=== PATIENT | female | born 1935 | race Caucasian/White ===

== ENCOUNTER 2017-09-25 14:28 | Emergency (ER) | payer OTHER, BC ==
[~2017-09-25 14:28] MED LIST: ASPCH81X PO; ATOR-26 PO; CALC500C70 PO; FENO134C2 PO; LEVO75TA5 PO; LRS10 PO; MULT-506 PO; OXYB10TA13 PO; PARO30TA PO; PRLSR20 PO
[2017-09-25 14:42] VITALS: TEMP 36.9
[2017-09-25] MEDS ORDERED: ACETAMINOPHEN 500 MG TAB PO STA (15:05)
--- NOTE | 2017-09-25 15:48 | DIAGNOSTIC IMAGING REPORT ---
HEAD WITHOUT CONTRAST (CT) CLINICAL HISTORY: 82 years-old Female presenting with Pt c/o fall, head injury. TECHNIQUE: Multidetector CT imaging of the head was performed without the use of intravenous contrast. IV contrast: None. A dose lowering technique was used consistent with the principles of ALARA (as low as reasonably achievable). COMPARISON: None. CT DOSE (mGy.cm): The estimated cumulative dose is 1091.72 mGycm. FINDINGS: Sales And Catering Coordinator topogram: Unremarkable. Ventricles and sulci normal in size. Brain parenchyma normal in appearance with preserved colon-white differentiation. No mass effect or midline shift. No hemorrhage or acute territorial infarct. No extra-axial fluid collection. Paranasal sinuses and mastoid air cells clear. Calvarium intact. Small subgaleal hematoma at the posterior vertex. No subjacent osseous injury. IMPRESSION: 1. No acute intracranial abnormality. 2. Small subgaleal hematoma the posterior vertex. No subjacent osseous injury. Electronically signed by: Bryant Salas M.D. 09/25/2017 3:47 PM Dictated Date/Time: 09/25/2017 3:44 PM
[2017-09-25] MEDS ORDERED: LPT/40 PO (16:25)
[2017-09-25] MEDS ORDERED: FENO145T26 PO (16:25)
[2017-09-25 16:26] VITALS: BP 130/63; PULSE 78; O2SAT 94
--- NOTE | 2017-09-25 16:34 | EMERGENCY ROOM VISIT NOTE ---
History Report prepared by Riki: Gisel Solomon Under the Supervision of: Dr. Denis Humphreys M.D. First contact with patient: 14:56 Chief Complaint: FALL Stated Complaint: FELL IN PARKING LOT - HIT BACK OF HEAD History of Present Illness The patient is an 82 year old female who presents to the Emergency Room with complaints of resolved head trauma that occurred secondary to falling prior to arrival. The patient states that she was in the parking lot after seeing her woodworking machine feeder, when she lost her balance and fell. She notes that she did not trip on anything, but she did hit her head. According to the sister in law, the patient was awake the entire time and did not lose consciousness. The patient denies a history of falling. She currently takes a baby aspirin daily. The patient reports that she has been having trouble hearing out of her right ear, which is not related to the recent fall. Source of History: patient, family (sister in law) Onset: prior to arrival Position: head Quality: other (head trauma ) Timing: resolved Associated Symptoms: No LOC Note: Associated symptoms include: lost her balance. Review of Systems See HPI for pertinent positives & negatives. A total of 10 systems reviewed and were otherwise negative. Past Medical & Surgical Patient reports no pertinent family history. Family History Patient reports no known family medical history. Social History Smoking Status: Never Smoker Smokeless Tobacco Use: No Alcohol Use: none Drug Use: none Marital Status: Housing Status: lives alone Occupation Status: retired Current/Historical Medications Scheduled Aspirin (Aspirin Chewable), 81 MG PO HS Atorvastatin (Lipitor), 40 MG PO DAILY Calcium/Vitamin D (Os-Mahamed 500 Plus D), 1 TAB PO DAILY AFTERNOON Fenofibrate (Tricor), 145 MG PO DAILY Levothyroxine Sodium (Levothyroxine Sodium), 1 TAB PO QAM Multivitamin (Multivitamin), 1 TAB PO DAILY AFTERNOON Omeprazole (Prilosec), 20 MG PO BID Oxybutynin Chloride Er (Ditropan Xl), 10 MG PO QAM Paroxetine Hcl (Paxil), 30 MG PO QAM Allergies Coded Allergies: Oxycodone (Verified Allergy, Unknown, HALLUCINATIONS, 09/25/17) Physical Exam Vital Signs Date Time Temp Pulse Resp B/P (MAP) Pulse Ox O2 Delivery O2 Flow Rate FiO2 09/25/17 16:26 78 18 130/63 94 4/18/18 14:42 36.9 82 20 132/74 92 Room Air Physical Exam GENERAL: Awake, alert, well-appearing, in no acute distress HENT: Quarter size contusion to back of head, no laceration present. Normocephalic, atraumatic. Oropharynx unremarkable. EYES: Normal conjunctiva. Sclera non-icteric. NECK: Supple. No nuchal rigidity. FROM. No JVD. RESPIRATORY: Clear to auscultation. CARDIAC: Regular rate, normal rhythm. Extremities warm and well perfused. Pulses equal. ABDOMEN: Soft, non-distended. No tenderness to palpation. No rebound or guarding. No masses. RECTAL: Deferred. MUSCULOSKELETAL: Chest examination reveals no tenderness. The back is symmetrical on inspection without obvious abnormality. There is no CVA tenderness to palpation. No joint edema. LOWER EXTREMITIES: Calves are equal size bilaterally and non-tender. No edema. No discoloration. NEURO: Normal sensorium. No sensory or motor deficits noted. SKIN: No rash or jaundice noted. Medical Decision & Procedures ER Provider Diagnostic Interpretation: CT results as stated below per my review and radiologist interpretation: HEAD WITHOUT CONTRAST (CT) CLINICAL HISTORY: 82 years-old Female presenting with Pt c/o fall, head injury. TECHNIQUE: Multidetector CT imaging of the head was performed without the use of intravenous contrast. IV contrast: None. A dose lowering technique was used consistent with the principles of ALARA (as low as reasonably achievable). COMPARISON: None. CT DOSE (mGy.cm): The estimated cumulative dose is 1091.72 mGycm. FINDINGS: Sheet Metal Technician topogram: Unremarkable. Ventricles and sulci normal in size. Brain parenchyma normal in appearance with preserved colon-white differentiation. No mass effect or midline shift. No hemorrhage or acute territorial infarct. No extra-axial fluid collection. Paranasal sinuses and mastoid air cells clear. Calvarium intact. Small subgaleal hematoma at the posterior vertex. No subjacent osseous injury. IMPRESSION: 1. No acute intracranial abnormality. 2. Small subgaleal hematoma the posterior vertex. No subjacent osseous injury. Electronically signed by: Bryant Salas M.D. 09/25/2017 3:47 PM Dictated Date/Time: 09/25/2017 3:44 PM Medications Administered Medications (Trade) Dose Ordered Sig/Machelle Route Start Time Stop Time Status Last Admin Dose Admin Acetaminophen (Tylenol Tab) 1,000 mg NOW STAT PO 09/25/17 15:05 09/25/17 15:06 DC 09/25/17 15:29 1,000 MG ED Course 1503: Past medical records reviewed. The patient was evaluated in room C1. A complete history and physical examination was performed. 1505: Ordered Tylenol Tab 1000mg PO. 1543: I reevaluated the patient, who states she is feeling significantly better. 1615: Upon reexamination the patient is feeling better. I discussed results and treatment plan with the patient. She verbalizes agreement and understanding. The patient is ready for discharge. Medical Decision Differential diagnosis: Etiologies such as fracture, dislocation, intra-abdominal, pneumothorax, intrathoracic , intracranial, neurologic, as well as other traumatic pathologies were entertained. This is an 82-year-old female who presents the emergency department complaining of fall in the parking lot. The patient denies any loss of consciousness. She has a bruise to the back of the head. She is neurovascularly intact. She was sent for CAT scan of the head which did not show any evidence of injury except for a contusion. Patient was given Tylenol here in the emergency department and was ambulated by nursing staff. I encouraged her to follow-up with her primary care physician. Patient was in agreement with the treatment plan. Medication Reconcilliation Current Medication List: was personally reviewed by me Blood Pressure Screening Patient's blood pressure: Normal blood pressure Blood pressure disposition: Did not require urgent referral Impression Primary Impression: Fall Additional Impression: Head injury Scribe Attestation The scribe's documentation has been prepared under my direction and personally reviewed by me in its entirety. I confirm that the note above accurately reflects all work, treatment, procedures, and medical decision making performed by me. Departure Information Dispostion Home / Self-Care Referrals Ajay Wesley M.D. (PCP) Forms HOME CARE DOCUMENTATION FORM, IMPORTANT VISIT INFORMATION Patient Instructions [facility] Additional Instructions You were found to have an elevated blood pressure today (>120 sytolic or >90 diastolic). Per medicare guidelines, you need to follow up with this blood pressure screening with your Primary Care Physician (PCP). For a new PCP call [phone]. You have been examined and treated today on an emergency basis only. This is not a substitute for, or an effort to provide, complete comprehensive medical care. It is impossible to recognize and treat all injuries or illnesses in a single emergency department visit. It is therefore important that you follow up closely with Dr Wesley. Call as soon as possible for an appointment. Thank you for your time and consideration. I look forward to speaking with you again soon. Please don't hesitate to call us if you have any questions. Problem Qualifiers Primary Impression: Fall Encounter type: initial encounter Qualified Codes: W19.XXXA - Unspecified fall, initial encounter Additional Impression: Head injury Encounter type: initial encounter Qualified Codes: S09.90XA - Unspecified injury of head, initial encounter
== END 2017-09-25 16:55 | disposition home or self-care (01) ==
LOC: C.EDB 14:30 → C.EDC 16:55
DX: S09.90XA Unspecified injury of head, initial encounter (principal); W19.XXXA Unspecified fall, initial encounter

== ENCOUNTER 2022-12-11 09:04 | Inpatient (IN) ==
[2022-12-11] MEDS ORDERED: ACETAMINOPHEN IV STA (10:06)
[2022-12-11 10:21] LABS: Basophils # (auto) 0.06 K/uL (0-0.2); Basophils % (auto) 0.7 %; Eosinophils # (auto) 0.11 K/uL (0-0.50); Eosinophils % (auto) 1.3 %; Hematocrit (blood only) 36.7 % (37.0-47.0); Hemoglobin 12.2 g/dl (12.0-16.0); Immature Granulocytes # (auto) 0.03 K/uL (0.01-0.20); Immature Granulocytes % (auto) 0.3 %; Lymphocytes # (auto) 1.33 K/uL (1.2-3.4); Lymphocytes % (auto) 15.1 %; Mean Corpuscular Hemoglobin 29.3 pg (25.0-34.0); Mean Corpuscular Hgb Conc 33.2 g/dL (32.0-36.0); Mean Platelet Volume 10.9 fL (9.4-12.4); Monocytes % (auto) 6.8 %; Neutrophils # (auto) 6.65 K/uL (1.40-6.50); Neutrophils % (auto) 75.8 %; Platelet Count 350 K/uL (130-400); RDW Coefficient of Variation 13.9 % (11.5-14.5); RDW Standard Deviation 44.8 fL (36.4-46.3); Red Blood Count 4.17 M/uL (4.20-5.40); White Blood Count 8.78 K/ul (4.8-10.8)
[2022-12-11] MEDS: SODIUM CHLORIDE 0.9% 1000ML 1,000 ML IV SCH ×2 (10:22→20:01)
[2022-12-11 10:24] LABS: Anion Gap 5 (3-11); BUN Creatinine Ratio 26.6 (10-20); Blood Urea Nitrogen 21 mg/dl (6-23); Calcium 9.6 mg/dl (8.6-10.3); Carbon Dioxide 26 mmol/L (21-32); Chloride 110 mmol/L (98-107); Creatinine Clr Calc Pharmacy 33.2 ml/min; Est GFR (African American) 78.6 ml/min; Est GFR (Non-African American) 67.8 ml/min; Glucose 107 mg/dl (70-99(Fasting)); Sodium 141 mmol/L (136-145)
[2022-12-11 10:29] LABS: Appearance Urine Clear (Clear); Bacteria Urine Automated 3+ (Negative); Bilirubin Urine Negative (Negative); Blood Urine Trace (Negative); Color Urine Dark Yellow; Epithelial Cell Urine Auto >30 /lpf (0-5); Glucose Urine UA Negative (Negative); Ketones Urine Negative (Negative); Leukocyte Esterase Urine Negative (Negative); Nitrite Urine Positive (Negative); Protein Urine Negative (Negative); RBC Urine Automated 0-4 /hpf (0-4); Specific Gravity Urine 1.021 (1.000-1.030); Urobilinogen Urine Negative (Negative)
[2022-12-11 10:35] LABS: Alanine Aminotransferase 9 U/L (7-52); Albumin Globulin Ratio 1.1 (0.9-2); Albumin Level 3.9 gm/dl (3.4-5.0); Alkaline Phosphatase 31 U/L (34-104); Aspartate Aminotransferase 14 U/L (13-39); Bilirubin,Total 0.6 mg/dl (0.2-1.0); Globulin 3.4 gm/dl (2.5-4.0); Lipase < 3 U/L (11-82); Magnesium 1.7 mg/dl (1.7-2.4); Total Protein 7.3 gm/dl (6.0-8.3)
[2022-12-11] MEDS ORDERED: cefTRIAXone SODIUM 1,000 MG in DEXTROSE 5% AD-VAN 50 ML IV STA (10:41)
[2022-12-11] MEDS ORDERED: OPTIRAY 320 100ml IV ONE (10:45)
--- NOTE | 2022-12-11 11:09 | CT Scan Report ---
CT SCAN OF THE ABDOMEN AND PELVIS WITH IV CONTRAST CLINICAL HISTORY: Right sided abdominal pain. COMPARISON STUDY: No priors. TECHNIQUE: Following the IV administration of 94 cc of Optiray 320, CT scan of the abdomen and pelvi s is performed from the lung bases to the proximal femora. Images are reviewed in the axial, sagittal , and coronal planes. IV contrast was administered without complication. A dose lowering technique wa s utilized adhering to the principles of ALARA. CT DOSE: 467.94 mGy.cm FINDINGS: Lung bases: The heart is enlarged and without pericardial effusion. The coronary arteries are densely calcified. There is trace right pleural effusion with segmental atelectasis at the right lung base. Scarring/atelectasis is noted at the left lung base. There is no basilar pneumothorax. There is a tin y hiatal hernia. Liver: The contrast-enhanced liver is normal in size, contour, and attenuation. There is no intrahepa tic biliary ductal dilatation. The hepatic veins and portal veins are patent. Gallbladder: Unremarkable. Spleen: Normal in size and attenuation. 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 Pancreas: Atrophic and grossly unremarkable. Adrenal glands: Unremarkable. Kidneys: The contrast enhanced kidneys demonstrate mild cortical atrophy and are without hydronephros is. The kidneys enhance symmetrically. 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 Renal sinus cysts are seen bilaterally. Subcentimeter cortical hypodensities likely rep resent cysts but are too small for definitive characterization. Abdominal vasculature: The abdominal aorta is normal in course and caliber noting moderate to advance d atherosclerotic calcification. Bowel: The small bowel and colon are normal in course and caliber. The appendix is well-visualized a nd normal. Peritoneum: There is no intraperitoneal free air or abdominal ascites. Lymphadenopathy: None. Pelvic viscera: The bladder, uterus, and adnexa are normal as visualized. Skeletal structures: The skeletal structures are osteopenic. No lytic or blastic lesions are seen. Th ere are acute right posterior 9th and 10th rib fractures. There is fracture of the right posterior 11 th rib at the costovertebral junction. There are right transverse process fractures of T10 and T11. A dditional chronic/healed bilateral rib fractures are noted. There is an insufficiency fracture of the right sacral ala. There is chronic-appearing perisplenic change in the left aspect of the pubic symp hysis. IMPRESSION: 1. There are no acute infectious or inflammatory findings in the other pelvis. 2. Acute right posterior 9th through 11th rib fractures as above, as well as acute right transverse p rocess fractures of T10 and T11. 3. Additional chronic fractures as above. 4. Cardiomegaly. 5. Trace right pleural effusion with segmental atelectasis at the right lung base. 6. Additional findings as above. ACT 112: Negative or not required by law. Electronically signed by: John Cuevas M.D. 12/11/2022 11:07 AM
--- NOTE | 2022-12-11 13:00 | Emergency Department Note ---
Impression & Plan Right lateral abdominal pain, Acute UTI (urinary tract infection), Multiple rib fractures, Fracture of transverse process of thoracic vertebra ED Provider Note ED Provider Note NAME: DEISI PATEL AGE:87 SEX: Female : 1935 ARRIVES VIA: EMS INFORMANT: Patient ED PROVIDER(s): Yamini Nash DO CHIEF COMPLAINT: right sided abdominal pain HPI: This is an 87-year-old female presents emergency department complaining of 1 week of worsening right-sided abdominal pain. Patient states she is had intermittent right-sided milder abdominal pain before, although it has worsened over the course of the last week. She denies any change in urine or difficulty urinating. She states she has been more constipated recently and has not had a bowel movement in 4 days. She denies fevers, chills, trouble breathing, cough, or other URI symptoms. Patient states the pain is worse with any movement. Patient does admit to a fall a little over a week ago where she struck her neck and face. She states she was seen at [facility] and placed in a long-term. Patient denies any history of IBS, IBD, or PUD. PAST MEDICAL HISTORY:See Below PAST SURGICAL HISTORY:See Below FAMILY HISTORY:See Below SOCIAL HISTORY:See Below HOME MEDICATIONS:See Below ALLERGIES:See Below VITALS:See Below PHYSICAL EXAMINATION: GENERAL: alert, well appearing, well nourished, no distress, non-toxic HEAD: area of resolving ecchymosis noted to submental area and anterior superior neck, no crepitus, nontender with palpation, no other evidence of head/facial trauma EYE EXAM: normal conjunctiva, PERRL and EOM's grossly intact OROPHARYNX: no exudate, no erythema, lips, buccal mucosa, and tongue normal and mucous membranes are moist NECK: supple, no nuchal rigidity, no adenopathy, non-tender LUNGS: Clear to auscultation. Normal chest wall mechanics, no w/r/r HEART: no murmurs, S1 normal and S2 normal CHEST WALL: nontender with palpation, no crepitus, no contusions ABDOMEN: abdomen soft, non-tender, normo-active bowel sounds, no masses, no rebound or guarding. PELVIS: stable to compression, nontender with palpation BACK: Back is symmetrical on inspection and there is no deformity, no midline tenderness, no CVA tenderness. SKIN: no rashes, petechiae, orbruising UPPER EXTREMITIES: upper extremities are grossly normal. FROM, nml pulses b/l. LOWER EXTREMITIES: No pitting edema. FROM, nml pulses b/l. NEURO EXAM: Normal sensorium, cranial nerves II-XII grossly intact, normal speech, no facial droop,nogross weakness of arms, no gross weakness of legs. Gross sensation intact. No ataxia. Vital Signs: reviewed and remarkable Differential Diagnosis: Colitis, SBO, volvulus, cholecystitis, acute hepatitis, UTI, renal colic, mesenteric ischemia, intussusception, appendicitis, malignancy, perf, GI bleed, as well as others were considered MEDICAL DECISION MAKING: THis is an 87 yo female who presents with concern for right sided abdominal pain. VS stable and pt afebrile. Labs drawn and sent, IV established, EKG performed and interpreted at bedside, and patient placed on telemetry. She was started on IVF and given IV tylenol for pain and sent for CT a/p. CT revealed rib fractures and transverse process fractures, likely from her reported fall a week ago. Patient takes low dose asa, no other anticoagulation. No other evidence of significant traumatic injury. Labs reassuring, however patient also noted to have a UTI. She was started on IV rocephin. No GERALDO or evidence of sepsis. While attempting to contact patient's family to update her on the findings we attempted to perform an ambulatory trial. Patient very unsteady and required assistance just to stand at bedside. Due to age, ambulatory dysfunctio n, UTI, and accompanying rib fractures, we discussed inpatient mgmt while awaiting family to call back to discuss intermediate card tender plan of care as patient states she currently lives with family. Consultation(s): 1520: Discussed with Dr. Win. ER Treatment Provided: See below 1450: Patient unsteady during ambulatory trial. Tolerated p.o. without di fficulty. Patient states family is out of town and has been unreachable by phone. She has no espinosa to get into the house and has no other financial means of paying for a way home. sales mgr did try to contact listed number for daughter several times and left messages. No return call. Diagnostics Interpreted By Me: -ECG: Sinus bradycardia at 58, normal axis, normal intervals, no acute ST/T wave change; baseline artifact noted -Cardiac Monitoring: An order was placed for continuous cardiac monitoring. The monitor shows a rate of 53 with normal sinus rhythm. -Laboratory studies: As stated above and show below. -Imaging studies: Triage Nursing Note Reviewed Prior/Outside Records Reviewed Past Med/Surg History Medical History (Updated 12/12/22 @ 21:35 by Yamini Nash DO) Acquired hypothyroidism Anxiety and depression Dyslipidemia GERD without esophagitis Social History Smoking Status: Never smoker Second Hand Exposure: No; Do You Dip or Chew Tobacco: No; Tobacco Cessation Education Requested by Patient: No Hx Alcohol Use: No Hx Substance Use: No Preferred Language: Romansh Communication Ability: Effective Outreach Professional Required: No Beliefs That Will Affect Care: None Current Living Situation: Alone Other Information That Helps Us Care for You: No Feels Safe at Home: Yes Safety Concerns: Feels Safe At This Time Assistive Devices: Cane and Walker Allergies Allergies Allergy/AdvReac Type Severity Reaction Status Date / Time oxycodone Allergy Unknown HALLUCINATI Verified 09/25/17 16:16 ONS Home Meds Home Medications Medication Instructions Recorded Confirmed ASPIRIN (ASPIRIN CHEWABLE) 81 mg PO QAM ##0 02/29/16 12/11/22 LEVOTHYROXINE SODIUM 1 tab PO QAM 90 days #90 tabs 02/29/16 12/11/22 ATORVASTATIN (LIPITOR) 40 mg PO HS #0 tabs 09/25/17 12/11/22 FENOFIBRATE (TRICOR) 145 mg PO QAM #0 tabs 09/25/17 12/11/22 acetaminophen 325 mg capsule 650 mg PO QID PRN Fever 12/11/22 12/11/22 (Tylenol) acetaminophen 325 mg tablet 325 mg PO QID PRN Pain 12/11/22 12/11/22 (Tylenol) alendronate 70 mg tablet 70 mg PO WK 12/11/22 12/11/22 bisacodyl 10 mg rectal suppository 10 mg [place] DAILY PRN Constipation 12/11/22 12/11/22 (Dulcolax (bisacodyl)) cholestyramine (with sugar) 4 gram 0 ea PO DAILY 12/11/22 12/11/22 oral powder cyanocobalamin (vitamin B-12) 5,000 mcg sublingual QAM 12/11/22 12/11/22 5,000 mcg sublingual tablet escitalopram oxalate 10 mg tablet 10 mg PO QAM 12/11/22 12/11/22 loperamide 2 mg capsule See Rx Instructions .Route .COMPLEX 12/11/22 12/11/22 magnesium hydroxide 400 mg/5 mL 30 ml PO DAILY PRN Constipation 12/11/22 12/11/22 oral suspension (Milk of Magnesia) melatonin 3 mg tablet 3 mg PO HS 12/11/22 12/11/22 pantoprazole 40 mg tablet,delayed 40 mg PO BID 12/11/22 12/11/22 release potassium chloride 20 mEq 20 meq PO QAM 12/11/22 12/11/22 tablet,extended release sodium phosphates 19 gram-7 118 ml [place] DAILY PRN Constipation 12/11/22 12/11/22 gram/118 mL enema (Fleet Enema) Results & Data (ED) Vital Signs Vital Signs - 24 hr 12/11/22 09:10 12/11/22 09:26 12/11/22 13:35 Temperature 37 C Temperature Source Oral Pulse Rate 58 L 52 L 51 L Pulse Rhythm Regular Pulse Strength Normal Respiratory Rate 20 Respiratory Effort / Characteristics Non-Labored Respiratory Depth Normal Blood Pressure 160/106 H Blood Pressure Mean 124 Pulse Oximetry 97 Oxygen Delivery Method Room Air Sepsis Recent Fever Within 48 Hours No Sepsis New/Unexplained Change in Mental Status No Sepsis Action Taken by Nursing No Action Required Laboratory Data 12/11/22 09:15 12/11/22 09:15 Lab Results 12/11/22 12/11/22 12/11/22 Range/Units 09:15 09:15 09:21 WBC 8.78 (4.8-10.8) K/ul RBC 4.17 L (4.20-5.40) M/uL Hgb 12.2 (12.0-16.0) g/dl Hct 36.7 L (37.0-47.0) % MCV 88.0 (80.0-100.0) fL MCH 29.3 (25.0-34.0) pg MCHC 33.2 (32.0-36.0) g/dL RDW Std Deviation 44.8 (36.4-46.3) fL RDW Coeff of Naya 13.9 (11.5-14.5) % Plt Count 350 (130-400) K/uL MPV 10.9 (9.4-12.4) fL Immature Gran % (Auto) 0.3 % Neut % (Auto) 75.8 % Lymph % (Auto) 15.1 % [place] % (Auto) 6.8 % Eos % (Auto) 1.3 % Baso % (Auto) 0.7 % Neut # (Auto) 6.65 H (1.40-6.50) K/uL Lymph # (Auto) 1.33 (1.2-3.4) K/uL [place] # (Auto) 0.60 H (0.11-0.59) K/uL Eos # (Auto) 0.11 (0-0.50) K/uL Baso # (Auto) 0.06 (0-0.2) K/uL Immature Gran # (Auto) 0.03 (0.01-0.20) K/uL Sodium 141 (136-145) mmol/L Potassium 4.0 (3.5-5.1) mmol/L Chloride 110 H (98-107) mmol/L Carbon Dioxide 26 (21-32) mmol/L Anion Gap 5 (3-11) BUN 21 (6-23) mg/dl Creatinine 0.79 (0.6-1.2) mg/dl Est Cr Clr Drug Dosing 33.2 ml/min Est GFR ( Amer) 78.6 ml/min Est GFR (Non-Af Amer) 67.8 ml/min BUN/Creatinine Ratio 26.6 H (10-20) Glucose 107 H (70-99(Fasting)) mg/dl Calcium 9.6 (8.6-10.3) mg/dl Magnesium 1.7 (1.7-2.4) mg/dl Total Bilirubin 0.6 (0.2-1.0) mg/dl AST 14 (13-39) U/L ALT 9 (7-52) U/L Alkaline Phosphatase 31 L (34-104) U/L Total Protein 7.3 (6.0-8.3) gm/dl Albumin 3.9 (3.4-5.0) gm/dl Globulin 3.4 (2.5-4.0) gm/dl Albumin/Globulin Ratio 1.1 (0.9-2) Lipase < 3 L (11-82) U/L Urine Color Dark Yellow Urine Appearance Clear (Clear) Urine pH 5.0 (4.5-7.5) Ur Specific [place] 1.021 (1.000-1.030) Urine Protein Negative (Negative) Urine Glucose (UA) Negative (Negative) Urine Ketones Negative (Negative) Urine Blood Trace H (Negative) Urine Nitrite Positive A (Negative) Urine Bilirubin Negative (Negative) Urine Urobilinogen Negative (Negative) Ur Leukocyte Esterase Negative (Negative) Urine WBC (Auto) 5-10 H (0-5) /hpf Urine RBC (Auto) 0-4 (0-4) /hpf U Hyaline Cast (Auto) 1-5 (0-5) /lpf U Epithel Cells (Auto) >30 H (0-5) /lpf Urine Bacteria (Auto) 3+ H (Negative) SARS-CoV-2 (PCR) (Negative) Influenza Type A (PCR) (Neg) Influenza Type B (PCR) (Neg) RSV (RT-PCR) (Neg) 12/11/22 Range/Units 15:32 WBC (4.8-10.8) K/ul RBC (4.20-5.40) M/uL Hgb (12.0-16.0) g/dl Hct (37.0-47.0) % MCV (80.0-100.0) fL MCH (25.0-34.0) pg MCHC (32.0-36.0) g/dL RDW Std Deviation (36.4-46.3) fL RDW Coeff of Naya (11.5-14.5) % Plt Count (130-400) K/uL MPV (9.4-12.4) fL Immature Gran % (Auto) % Neut % (Auto) % Lymph % (Auto) % [place] % (Auto) % Eos % (Auto) % Baso % (Auto) % Neut # (Auto) (1.40-6.50) K/uL Lymph # (Auto) (1.2-3.4) K/uL [place] # (Auto) (0.11-0.59) K/uL Eos # (Auto) (0-0.50) K/uL Baso # (Auto) (0-0.2) K/uL Immature Gran # (Auto) (0.01-0.20) K/uL Sodium (136-145) mmol/L Potassium (3.5-5.1) mmol/L Chloride (98-107) mmol/L Carbon Dioxide (21-32) mmol/L Anion Gap (3-11) BUN (6-23) mg/dl Creatinine (0.6-1.2) mg/dl Est Cr Clr Drug Dosing ml/min Est GFR ( Amer) ml/min Est GFR (Non-Af Amer) ml/min BUN/Creatinine Ratio (10-20) Glucose (70-99(Fasting)) mg/dl Calcium (8.6-10.3) mg/dl Magnesium (1.7-2.4) mg/dl Total Bilirubin (0.2-1.0) mg/dl AST (13-39) U/L ALT (7-52) U/L Alkaline Phosphatase (34-104) U/L Total Protein (6.0-8.3) gm/dl Albumin (3.4-5.0) gm/dl Globulin (2.5-4.0) gm/dl Albumin/Globulin Ratio (0.9-2) Lipase (11-82) U/L Urine Color Urine Appearance (Clear) Urine pH (4.5-7.5) Ur Specific [place] (1.000-1.030) Urine Protein (Negative) Urine Glucose (UA) (Negative) Urine Ketones (Negative) Urine Blood (Negative) Urine Nitrite (Negative) Urine Bilirubin (Negative) Urine Urobilinogen (Negative) Ur Leukocyte Esterase (Negative) Urine WBC (Auto) (0-5) /hpf Urine RBC (Auto) (0-4) /hpf U Hyaline Cast (Auto) (0-5) /lpf U Epithel Cells (Auto) (0-5) /lpf Urine Bacteria (Auto) (Negative) SARS-CoV-2 (PCR) NEGATIVE (Negative) Influenza Type A (PCR) Negative (Neg) Influenza Type B (PCR) Negative (Neg) RSV (RT-PCR) Negative (Neg) Administered Medications Acetaminophen (Acetaminophen 325 Mg Tab) 650 mg PO QID SANDEEP Stop: 01/11/23 12:59 Last Admin: 12/12/22 17:31 Dose: 650 mg Documented By: Admin: 12/12/22 13:46 Dose: 650 mg Documented By: YAIMA Aspirin (Aspirin 81 Mg Ectab) 81 mg PO [facility] Stop: 01/11/23 08:59 Last Admin: 12/12/22 08:08 Dose: 81 mg Documented By: YAIMA Atorvastatin Calcium (Atorvastatin 40 Mg Tab) 40 mg PO HS [facility] Stop: 01/10/23 20:59 Last Admin: 12/12/22 19:46 Dose: 40 mg Documented By: Admin: 12/11/22 21:17 Dose: 40 mg Documented By: GLENN Cholestyramine Resin (Cholestyramine Light 4 Gm Pkt) 4 gm PO DAILY@1000 [facility] Stop: 01/11/23 09:59 Last Admin: 12/12/22 09:44 Dose: 4 gm Documented By: YAIMA Cyanocobalamin (Cyanocobalamin (B-12) 2,500 Mcg Tablet) 5,000 mcg SL [facility] Stop: 01/11/23 08:59 Last Admin: 12/12/22 08:09 Dose: 5,000 mcg Documented By: YAIMA Enoxaparin Sodium (Enoxaparin Inj 40 Mg/0.4 Ml Syr) 40 mg SQ Q24H [facility] Stop: 01/10/23 19:29 Last Admin: 12/12/22 19:45 Dose: 40 mg Documented By: Admin: 12/11/22 21:16 Dose: 40 mg Documented By: GLENN Escitalopram Oxalate (Escitalopram Oxalate 10 Mg Tab) 10 mg PO [facility] Stop: 01/11/23 08:59 Last Admin: 12/12/22 08:10 Dose: 10 mg Documented By: YAIMA Fenofibrate (Fenofibrate Nanocrystallized 145 Mg Tablet) 145 mg PO [facility] Stop: 01/11/23 08:59 Last Admin: 12/12/22 08:10 Dose: 145 mg Documented By: YAIMA Ceftriaxone Sodium 1,000 mg/ (Dextrose) 50 mls @ 100 mls/hr IV Q24H [facility]; Protocol Stop: 12/17/22 10:59 Last Infusion: 12/12/22 12:35 Dose: 0 mls/hr Documented By: Admin: 12/12/22 11:49 Dose: 100 mls/hr Documented By: YAIMA Levothyroxine Sodium (Levothyroxine Sodium 75 Mcg Tablet) [facility] Stop: 01/11/23 06:29 Last Admin: 12/12/22 05:49 Dose: 75 mcg Documented By: GLENN Lidocaine (Lidocaine 5% 1 Patch) 1 patch TD QAM [facility] Stop: 01/11/23 10:59 Last Admin: 12/12/22 11:49 Dose: 1 patch Documented By: YAIMA Melatonin (Melatonin 3 Mg Tab) 3 mg PO HS [facility] Stop: 01/10/23 20:59 Last Admin: 12/11/22 21:17 Dose: 3 mg Documented By: GLENN Miscellaneous (Remove Lidoderm Patch) 1 each N/A DAILY@2100 [facility] Stop: 01/11/23 20:59 Last Admin: 12/12/22 19:46 Dose: 1 each Documented By: GLENN Pantoprazole Sodium (Pantoprazole 40 Mg Tab) 40 mg PO BID [facility] Stop: 01/10/23 20:59 Last Admin: 12/12/22 19:45 Dose: 40 mg Documented By: Admin: 12/12/22 08:10 Dose: 40 mg Documented By: Admin: 12/11/22 21:17 Dose: 40 mg Documented By: GLENN Potassium Chloride (Potassium Chloride Crtab 20 Meq Tabcr) 20 meq PO QAM [facility] Stop: 01/11/23 08:59 Last Admin: 12/12/22 08:11 Dose: 20 meq Documented By: YAIMA Discontinued Medications Acetaminophen (Acetaminophen 325 Mg Tab) 650 mg PO QID PRN PRN Reason: Fever Stop: 01/10/23 20:10 Last Admin: 12/12/22 08:05 Dose: 650 mg Documented By: YAIMA Sodium Chloride (Nss 1000ml) 1,000 mls @ 125 mls/hr IV .Q8H [facility] Stop: 01/10/23 10:14 Last Admin: 12/12/22 12:06 Dose: Not Given Documented By: Infusion: 12/12/22 12:06 Dose: 0 mls/hr Documented By: Admin: 12/12/22 04:00 Dose: 125 mls/hr Documented By: Infusion: 12/12/22 04:00 Dose: 125 mls/hr Documented By: Admin: 12/11/22 20:01 Dose: 125 mls/hr Documented By: Infusion: 12/11/22 18:30 Dose: 0 mls/hr Documented By: Admin: 12/11/22 10:22 Dose: 125 mls/hr Documented By: KIRILL Acetaminophen 620 mg/ EMPTY (BAG) 62 mls @ 248 mls/hr IV NOW STA Stop: 12/11/22 10:07 Last Infusion: 12/11/22 10:45 Dose: 0 mls/hr Documented By: Admin: 12/11/22 10:30 Dose: 248 mls/hr Documented By: KIRILL Ceftriaxone Sodium 1,000 mg/ (Dextrose) 50 mls @ 100 mls/hr IV NOW STA Stop: 12/11/22 11:10 Last Infusion: 12/11/22 11:50 Dose: 0 mls/hr Documented By: Admin: 12/11/22 11:06 Dose: 100 mls/hr Documented By: KIRILL Ioversol (Optiray 320 100ml) 94 ml IV ONCE ONE Stop: 12/11/22 10:46 Last Admin: 12/11/22 10:46 Dose: 94 ml Documented By: EDK Imaging Data Radiologist's Impression: Abdomen/Pelvis CT 12/11/22 10:06 CT SCAN OF THE ABDOMEN AND PELVIS WITH IV CONTRAST CLINICAL HISTORY: Right sided abdominal pain. COMPARISON STUDY: No priors. TECHNIQUE: Following the IV administration of 94 cc of Optiray 320, CT scan of the abdomen and pelvis is performed from the lung bases to the proximal femora. Images are reviewed in the axial, sagittal, and coronal planes. IV contrast was administered without complication. A dose lowering technique was utilized adhering to the principles of ALARA. CT DOSE: 467.94 mGy.cm FINDINGS: Lung bases: The heart is enlarged and without pericardial effusion. The coronary arteries are densely calcified. There is trace right pleural effusion with segm ental atelectasis at the right lung base. Scarring/atelectasis is noted at the left lung base. There is no basilar pneumothorax. There is a tiny hiatal hernia. Liver: The contrast-enhanced liver is normal in size, contour, and attenuation. There is no intrahepatic biliary ductal dilatation. The hepatic veins and portal veins are patent. Gallbladder: Unremarkable. Spleen: Normal in size and attenuation. 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 Pancreas: Atrophic and grossly unremarkable. Adrenal glands: Unremarkable. Kidneys: The contrast enhanced kidneys demonstrate mild cortical atrophy and are without hydronephrosis. The kidneys enhance symmetrically. 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 Renal sinus cysts are seen bilaterally. Subcentimeter cortical hypodensities likely represent cysts but are too small for definitive characterization. Abdominal vasculature: The abdominal aorta is normal in course and caliber noting moderate to advanced atherosclerotic calcification. Bowel: The small bowel and colon are normal in course and caliber. The appendix is well-visualized and normal. Peritoneum: There is no intraperitoneal free air or abdominal ascites. Lymphadenopathy: None. Pelvic viscera: The bladder, uterus, and adnexa are normal as visualized. Skeletal structures: The skeletal structures are osteopenic. No lytic or blastic lesions are seen. There are acute right posterior 9th and 10th rib fractures. There is fracture of the right posterior 11th rib at the costovertebral junction . There are right transverse process fractures of T10 and T11. Additional chronic/healed bilateral rib fractures are noted. There is an insufficiency fracture of the right sacral ala. There is chronic-appearing perisplenic change in the left aspect of the pubic symphysis. IMPRESSION: 1. There are no acute infectious or inflammatory findings in the other pelvis. 2. Acute right posterior 9th through 11th rib fractures as above, as well as acute right transverse process fractures of T10 and T11. 3. Additional chronic fractures as above. 4. Cardiomegaly. 5. Trace right pleural effusion with segmental atelectasis at the right lung base. 6. Additional findings as above. ACT 112: Negative or not required by law. Electronically signed by: John Cuevas M.D. 12/11/2022 11:07 AM Discharge Plan Visit Data Chief Complaint: Abdominal Pain Stated Complaint: AB PAIN & HIP PAIN ED Provider: Yamini Nash Discharge Problem: Right lateral abdominal pain, Acute UTI (urinary tract infection), Multiple rib fractures, Fracture of transverse process of thoracic vertebra Patient Disposition: Admitted As Inpatient Discharge Instructions Interventions: ED Discharge Assessment Last Done: 12/11/22 18:28
[2022-12-11] MEDS ORDERED: ONDANSETRON INJ 2 MG/ML 2 ML VIAL IV PRN (16:08)
[2022-12-11] MEDS ORDERED: ACETAMINOPHEN 325 MG TAB PO PRN ×3 (16:08→20:11)
[2022-12-11] MEDS ORDERED: POLYETHYLENE (MIRALAX) 17 GM PACK PO PRN (16:08)
[2022-12-11] MEDS ORDERED: ALUMINUM/MAGNESIUM SUSP 30 ML UDC PO PRN (16:08)
[2022-12-11 16:22] LABS: Influenza A virus by PCR Negative (Neg); Influenza B virus by PCR Negative (Neg); RSV by PCR Negative (Neg); SARS CoV2 RNA(COVID-19) Ceph NEGATIVE (Negative)
--- NOTE | 2022-12-11 17:27 | History & Physical Report ---
Date of Service December 11, 2022 Assessment & Plan (1) Multiple rib fractures: Plan: d/t fall analgesia as needed conservative care Present on Admission?: Yes (2) Acute UTI (urinary tract infection): Plan: suspected difficult to say as UA is contaminated as evidenced by epithelial cells for now will error on the side of caution as the pt does endorse urinary symptoms, continue Ceftriaxone f/u culture results (3) Fall: Plan: PT consulted, appreciate input, will follow recs Present on Admission?: Yes (4) Right lateral abdominal pain: Plan: see under rib fractures and UTI as pain could be due to either or both Present on Admission?: Yes (5) Head contusion: Plan: supportive care analgesia Present on Admission?: Yes (6) Acquired hypothyroidism: Plan: continue levothyroxine no indication to check TSH Present on Admission?: Yes (7) Dyslipidemia: Plan: continue fenofibrate, statin therapy no indication to check a lipid panel Present on Admission?: Yes (8) Anxiety and depression: Plan: well controlled, stable continue home regimen Present on Admission?: Yes (9) GERD without esophagitis: Plan: no complaints at this time continue PPI therapy (10) Dementia: Plan: without behavioral disturbance supportive care reorient as needed avoid sedating/mind altering meds Present on Admission?: Yes History of Present Illness Chief Complaint: abdominal pain Primary Care Provider: Ajay Wesley MD Ms. Carpenter is an 87 year old female with pmhx of dementia, prior CVA, HLP, hypothyroidism, GERD, anxiety with depression and delirium d/t COVID in August 2022. She presented about 1 week after a fall due to chest wall and abdominal wall pain. She is found to have fractures of posterior ribs 9-11. She is also found to have possible UTI (difficult to say d/t contaminated UA). Ms. Carpenter is somewhat of a difficult historian in terms of she had a hard time with chronology of recent events and symptoms. ROS is nearly acosta-positive. Unfortunately there is no family present to assist with history and they have not answered any phone calls. Per Ms. Carpenter they dropped her off here and went out of town. As best as I can tell she fell about a week ago. She is unclear as to how or why she fell. She presented with pain in the right abdomen, chest wall, and back that is recently worse but present for months. She believes the pain worsened a few days ago after she was putting something in the fridge that started to fall and she aguilar herself catching it. Pain is described as sharp and like a knife being twisted in her. Pain is worse with movement and palpation. She believes she has had a runny nose, f/c, and sweats for the last week. This is associated with malaise, generalized weakness, and fatigue. She has lightheadedness, vertigo, and near syncope with rising for possibly the last week-month, or possibly longer. She reports intermittent dysuria with urinary urgency and frequency for an unclear length of time. Despite telling the ED Doc that she is constipated and not had a bm in 4 days she told me she has chronic diarrhea for at least 3 months with multiple liquid bowel movements per day. Per her RN at bedside she had a small solid stool earlier. She endorses sob but states it is no worse than usual. She denies cough and sore throat. She denies MORTON, focal weakness, numbness, tingling, and incontinence. ROS is of somewhat questionable reliability d/t dementia/mental status. ED Course: vs notable for BP 160s/100s, HR 50s, otherwise stable, saturating well ORA, afebrile b/w notable for Cl 110, remaining cbc and cmp unimpressive/wnl, Mg wnl imaging (CT A/P with contrast) notable for posterior rib fx of rib 9-11. Also notable for lack of e/o infection including lungs, GI, and tracts pt given Ceftriaxone, IVF, Tylenol, and admitted to hospitalist service. Allergies Allergy/AdvReac Type Severity Reaction Status Date / Time oxycodone Allergy Unknown HALLUCINATI Verified 09/25/17 16:16 ONS Home Medications Medication Instructions Recorded Confirmed Type ASPIRIN (ASPIRIN CHEWABLE) 81 mg PO QAM ##0 02/29/16 12/11/22 History LEVOTHYROXINE SODIUM 1 tab PO QAM 90 days #90 tabs 02/29/16 12/11/22 History ATORVASTATIN (LIPITOR) 40 mg PO HS #0 tabs 09/25/17 12/11/22 History FENOFIBRATE (TRICOR) 145 mg PO QAM #0 tabs 09/25/17 12/11/22 History acetaminophen 325 mg capsule 650 mg PO QID PRN Fever 12/11/22 12/11/22 History (Tylenol) acetaminophen 325 mg tablet 325 mg PO QID PRN Pain 12/11/22 12/11/22 History (Tylenol) alendronate 70 mg tablet 70 mg PO WK 12/11/22 12/11/22 History bisacodyl 10 mg rectal suppository 10 mg IA DAILY PRN Constipation 12/11/22 12/11/22 History (Dulcolax (bisacodyl)) cholestyramine (with sugar) 4 gram 0 ea PO DAILY 12/11/22 12/11/22 History oral powder cyanocobalamin (vitamin B-12) 5,000 mcg sublingual QAM 12/11/22 12/11/22 History 5,000 mcg sublingual tablet escitalopram oxalate 10 mg tablet 10 mg PO QAM 12/11/22 12/11/22 History loperamide 2 mg capsule See Rx Instructions .Route .COMPLEX 12/11/22 12/11/22 History magnesium hydroxide 400 mg/5 mL 30 ml PO DAILY PRN Constipation 12/11/22 12/11/22 History oral suspension (Milk of Magnesia) melatonin 3 mg tablet 3 mg PO HS 12/11/22 12/11/22 History pantoprazole 40 mg tablet,delayed 40 mg PO BID 12/11/22 12/11/22 History release potassium chloride 20 mEq 20 meq PO QAM 12/11/22 12/11/22 History tablet,extended release sodium phosphates 19 gram-7 118 ml IA DAILY PRN Constipation 12/11/22 12/11/22 History gram/118 mL enema (Fleet Enema) Past Med/Surg History Medical History (Updated 12/11/22 @ 17:48 by Naomi Win MD) Acquired hypothyroidism Anxiety and depression Dyslipidemia GERD without esophagitis Social History Smoking Status: Unknown if ever smoked Preferred Language: Setswana Feels Safe at Home: Yes Review of Systems Review of Systems: All systems reviewed & are unremarkable except as noted in HPI & below Physical Exam Physical Exam: General: frail, elderly appearing, NAD, non-toxic appearing Head: NC. Ecchymoses (resolving) involving the chin/neck Eyes: anicteric sclera, no conjunctival injection Nose: normal, nares patent Mouth: dry Neck: supple, trachea midline CV: RRR S1 S2 Pulm: CTA b/l Abd/GI: + BS, soft, NT, ND, no guarding Ext: no pretibial edema, peripheral pulses intact MSK: muscle wasting Neuro: alert, oriented to self, day and month (not year), knows she is in a hospital but can not name it. She is moving all 4 symmetrically, strength is symmetric. Sensation is intact. Psych: pleasant mood and affect Skin: visible skin is warm, dry, and without rash other than ecchymoses in various stages of healing. Pt not fully undressed for exam. Results & Data Results & Data Vital Signs (Past 12 Hours) Vital Signs Temp Pulse Pulse Resp BP BP Pulse Ox 12/11/22 16:08 57 L 18 150/62 H 97 12/11/22 13:35 51 L 12/11/22 09:26 52 L 12/11/22 09:10 37 C 58 L 20 160/106 H 97 O2 Del Method 12/11/22 16:08 Room Air 12/11/22 13:35 12/11/22 09:26 12/11/22 09:10 Room Air Laboratory Results Short CBC 12/11/22 Range/Units 09:15 WBC 8.78 (4.8-10.8) K/ul Hgb 12.2 (12.0-16.0) g/dl Hct 36.7 L (37.0-47.0) % Plt Count 350 (130-400) K/uL BMP 12/11/22 09:15 Sodium 141 Potassium 4.0 Chloride 110 H Carbon Dioxide 26 BUN 21 Creatinine 0.79 Glucose 107 H Calcium 9.6 Liver Function 12/11/22 Range/Units 09:15 Total Bilirubin 0.6 (0.2-1.0) mg/dl AST 14 (13-39) U/L ALT 9 (7-52) U/L Alkaline Phosphatase 31 L (34-104) U/L Albumin 3.9 (3.4-5.0) gm/dl Urine 12/11/22 Range/Units 09:21 Urine Color Dark Yellow Urine Appearance Clear (Clear) Urine pH 5.0 (4.5-7.5) Ur Specific [place] 1.021 (1.000-1.030) Urine Protein Negative (Negative) Urine Glucose (UA) Negative (Negative) Diagnostic Findings Abdomen/Pelvis CT 12/11/22 10:06 CT SCAN OF THE ABDOMEN AND PELVIS WITH IV CONTRAST CLINICAL HISTORY: Right sided abdominal pain. COMPARISON STUDY: No priors. FINDINGS: Lung bases: The heart is enlarged and without pericardial effusion. The coronary arteries are densely calcified. There is trace right pleural effusion with segmental atelectasis at the right lung base. Scarring/atelectasis is noted at the left lung base. There is no basilar pneumothorax. There is a tiny hiatal hernia. Liver: The contrast-enhanced liver is normal in size, contour, and attenuation. There is no intrahepatic biliary ductal dilatation. The hepatic veins and portal veins are patent. Gallbladder: Unremarkable. Spleen: Normal in size and attenuation. 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 Pancreas: Atrophic and grossly unremarkable. Adrenal glands: Unremarkable. Kidneys: The contrast enhanced kidneys demonstrate mild cortical atrophy and are without hydronephrosis. The kidneys enhance symmetrically. 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 Renal sinus cysts are seen bilaterally. Subcentimeter cortical hypodensities likely represent cysts but are too small for definitive characterization. Abdominal vasculature: The abdominal aorta is normal in course and caliber noting moderate to advanced atherosclerotic calcification. Bowel: The small bowel and colon are normal in course and caliber. The appendix is well-visualized and normal. Peritoneum: There is no intraperitoneal free air or abdominal ascites. Lymphadenopathy: None. Pelvic viscera: The bladder, uterus, and adnexa are normal as visualized. Skeletal structures: The skeletal structures are osteopenic. No lytic or blastic lesions are seen. There are acute right posterior 9th and 10th rib fractures. There is fracture of the right posterior 11th rib at the costovertebral junction. There are right transverse process fractures of T10 and T11. Additional chronic/healed bilateral rib fractures are noted. There is an insufficiency fracture of the right sacral ala. There is chronic-appearing perisplenic change in the left aspect of the pubic symphysis. IMPRESSION: 1. There are no acute infectious or inflammatory findings in the other pelvis. 2. Acute right posterior 9th through 11th rib fractures as above, as well as acute right transverse process fractures of T10 and T11. 3. Additional chronic fractures as above. 4. Cardiomegaly. 5. Trace right pleural effusion with segmental atelectasis at the right lung base. 6. Additional findings as above. Electronically signed by: John Cuevas M.D. 12/11/2022 11:07 AM Code Status & VTE Plan VTE Prophylaxis Plan VTE Prophylaxis will be ordered: Yes
[2022-12-11] MEDS ORDERED: MAGNESIUM HYDROXIDE SUSP 30 ML UDC PO PRN (19:57)
[2022-12-11] MEDS ORDERED: SOD PHOSPHATE/SOD BIPHOSPHATE ENEMA 132 ML BTL PR PRN (19:57)
[2022-12-11] MEDS ORDERED: bisacodyL 10 MG SUPP PR PRN (19:57)
[2022-12-11] MEDS ORDERED: LOPERAMIDE HCL 2 MG CAP PO PRN (19:57)
[2022-12-11] MEDS: ENOXAPARIN INJ 40 MG/0.4 ML SYR SQ SCH (21:16)
[2022-12-11] MEDS: PANTOprazole 40 MG TAB PO SCH (21:17)
[2022-12-11] MEDS: MELATONIN 3 MG TAB PO SCH (21:17)
[2022-12-11] MEDS: ATORVASTATIN 40 MG TAB PO SCH (21:17)
[2022-12-12] MEDS: SODIUM CHLORIDE 0.9% 1000ML 1,000 ML IV SCH ×2 (04:00→12:06)
[2022-12-12] MEDS: LEVOTHYROXINE SODIUM 75 MCG TABLET PO SCH (05:49)
[2022-12-12 07:32] LABS: Hematocrit (blood only) 35.3 % (37.0-47.0); Hemoglobin 11.8 g/dl (12.0-16.0); Mean Corpuscular Hemoglobin 28.9 pg (25.0-34.0); Mean Corpuscular Hgb Conc 33.4 g/dL (32.0-36.0); Mean Corpuscular Volume 86.5 fL (80.0-100.0); Mean Platelet Volume 10.2 fL (9.4-12.4); Platelet Count 320 K/uL (130-400); RDW Coefficient of Variation 13.7 % (11.5-14.5); RDW Standard Deviation 43.8 fL (36.4-46.3); Red Blood Count 4.08 M/uL (4.20-5.40); White Blood Count 6.57 K/ul (4.8-10.8)
[2022-12-12 07:46] LABS: BUN Creatinine Ratio 19.7 (10-20); Calcium 8.3 mg/dl (8.6-10.3); Creatinine Clr Calc Pharmacy 43.9 ml/min; Est GFR (African American) 92.7 ml/min; Potassium 3.6 mmol/L (3.5-5.1)
[2022-12-12] MEDS: ASPIRIN 81 MG ECTAB PO SCH (08:08)
[2022-12-12] MEDS: CYANOCOBALAMIN (B-12) 2,500 MCG TABLET SL SCH (08:09)
[2022-12-12] MEDS: ESCITALOPRAM OXALATE 10 MG TAB PO SCH (08:10)
[2022-12-12] MEDS: PANTOprazole 40 MG TAB PO SCH ×2 (08:10→19:45)
[2022-12-12] MEDS: FENOFIBRATE NANOCRYSTALLIZED 145 MG TABLET PO SCH (08:10)
[2022-12-12] MEDS: POTASSIUM CHLORIDE CRTAB 20 MEQ TABCR PO SCH (08:11)
[2022-12-12] MEDS: CHOLESTYRAMINE LIGHT 4 GM PKT PO SCH (09:44)
[2022-12-12] MEDS: cefTRIAXone SODIUM 1,000 MG in DEXTROSE 5% AD-VAN 50 ML IV SCH (11:49)
[2022-12-12] MEDS: LIDOCAINE 5% 1 PATCH TD SCH (11:49)
[2022-12-12] MEDS: ACETAMINOPHEN 325 MG TAB PO SCH ×3 (13:46→22:08)
--- NOTE | 2022-12-12 16:05 | Hospitalist Progress Note ---
Date of Service December 12, 2022 Assessment & Plan (1) Multiple rib fractures: Plan: d/t fall Started on Tylenol scheduled. Also on lidocaine patch Incentive spirometry (2) Acute UTI (urinary tract infection): Plan: suspected difficult to say as UA is contaminated as evidenced by epithelial cells Urine culture growing E. coli Continue on ceftriaxone (3) Fall: Plan: PT OT evaluation ordered. Patient would like to go to rehab (4) Right lateral abdominal pain: Plan: see under rib fractures and UTI as pain could be due to either or both (5) Head contusion: Plan: supportive care analgesia (6) Acquired hypothyroidism: Plan: continue levothyroxine (7) Dyslipidemia: Plan: continue fenofibrate, statin therapy no indication to check a lipid panel (8) Anxiety and depression: Plan: well controlled, stable continue home regimen (9) GERD without esophagitis: Plan: no complaints at this time continue PPI therapy (10) Dementia: Plan: without behavioral disturbance supportive care reorient as needed avoid sedating/mind altering meds Plan DVT prophylaxis; Lovenox Dispo; from home; PT OT evaluation awaited. Please note the above document was generated using voice recognition software. It may contain grammatical, syntax or spelling errors. Any formal questions or concerns about the content, text or information contained within the body of this dictation should be directly addressed to the provider for clarification Admission and Anticipated Discharge Date Admission Date: December 11, 2022 Subjective Patient seen and examined at bedside. She is comfortable; not in distress. Reports that pain is well controlled at rest. Review of Systems Review of Systems: All systems reviewed & are unremarkable except as noted in Subjective Physical Exam Physical Exam: Constitutional: WD/WN, vitals as above, NAD, sitting up in bed, pleasant, conversing easily Head: Bruises present on the underside of the chin. Respiratory: normal respiratory effort, lungs clear to auscultation, no wheeze, rales, rhonchi. Normal insp/exp effort, no accessory muscle use Cardiovascular: RRR, no murmur, no edema Vessels: no JVD or carotid bruit Chest: Tenderness present over right chest wall. Abdomen: normal bowel sounds, soft, nontender, no hepatosplenomegaly Musculoskeletal: no cyanosis or clubbing, extremities motor strength 5/5 Skin: no rashes, warm and dry normal turgor Neurologic: PERRL, EOMI, accommodation nl, no face palsy, no dysarthria CN's II- XI intact bilaterally and moves all extremities Results & Data Results & Data Vital Signs (Past 12 Hours) Vital Signs Temp Pulse Resp BP Pulse Ox O2 Del Method 12/12/22 15:51 36.8 C 53 L 18 135/60 94 Room Air 12/12/22 07:05 36.8 C 48 L 18 154/63 H 94 Room Air Laboratory Results Laboratory Results WBC 6.57 K/ul (4.8-10.8) 12/12/22 07:07 RBC 4.08 M/uL (4.20-5.40) L 12/12/22 07:07 Hgb 11.8 g/dl (12.0-16.0) L 12/12/22 07:07 Hct 35.3 % (37.0-47.0) L 12/12/22 07:07 MCV 86.5 fL (80.0-100.0) 12/12/22 07:07 MCH 28.9 pg (25.0-34.0) 12/12/22 07:07 MCHC 33.4 g/dL (32.0-36.0) 12/12/22 07:07 RDW Std Deviation 43.8 fL (36.4-46.3) 12/12/22 07:07 RDW Coeff of [place] 13.7 % (11.5-14.5) 12/12/22 07:07 Plt Count 320 K/uL (130-400) 12/12/22 07:07 MPV 10.2 fL (9.4-12.4) 12/12/22 07:07 Immature Gran % (Auto) 0.3 % 12/11/22 09:15 Neut % (Auto) 75.8 % 12/11/22 09:15 Lymph % (Auto) 15.1 % 12/11/22 09:15 [place] % (Auto) 6.8 % 12/11/22 09:15 Eos % (Auto) 1.3 % 12/11/22 09:15 Baso % (Auto) 0.7 % 12/11/22 09:15 Neut # (Auto) 6.65 K/uL (1.40-6.50) H 12/11/22 09:15 Lymph # (Auto) 1.33 K/uL (1.2-3.4) 12/11/22 09:15 [place] # (Auto) 0.60 K/uL (0.11-0.59) H 12/11/22 09:15 Eos # (Auto) 0.11 K/uL (0-0.50) 12/11/22 09:15 Baso # (Auto) 0.06 K/uL (0-0.2) 12/11/22 09:15 Immature Gran # (Auto) 0.03 K/uL (0.01-0.20) 12/11/22 09:15 Sodium 140 mmol/L (136-145) 12/12/22 07:07 Potassium 3.6 mmol/L (3.5-5.1) 12/12/22 07:07 Chloride 111 mmol/L (98-107) H 12/12/22 07:07 Carbon Dioxide 25 mmol/L (21-32) 12/12/22 07:07 Anion Gap 4 (3-11) 12/12/22 07:07 BUN 13 mg/dl (6-23) 12/12/22 07:07 Creatinine 0.66 mg/dl (0.6-1.2) 12/12/22 07:07 Est Cr Clr Drug Dosing 43.9 ml/min 12/12/22 07:07 Est GFR ( Amer) 92.7 ml/min 12/12/22 07:07 Est GFR (Non-Af Amer) 80.0 ml/min 12/12/22 07:07 BUN/Creatinine Ratio 19.7 (10-20) 12/12/22 07:07 Glucose 82 mg/dl (70-99(Fasting)) 12/12/22 07:07 Calcium 8.3 mg/dl (8.6-10.3) L 12/12/22 07:07 Magnesium 1.7 mg/dl (1.7-2.4) 12/11/22 09:15 Total Bilirubin 0.6 mg/dl (0.2-1.0) 12/11/22 09:15 AST 14 U/L (13-39) 12/11/22 09:15 ALT 9 U/L (7-52) 12/11/22 09:15 Alkaline Phosphatase 31 U/L (34-104) L 12/11/22 09:15 Total Protein 7.3 gm/dl (6.0-8.3) 12/11/22 09:15 Albumin 3.9 gm/dl (3.4-5.0) 12/11/22 09:15 Globulin 3.4 gm/dl (2.5-4.0) 12/11/22 09:15 Albumin/Globulin Ratio 1.1 (0.9-2) 12/11/22 09:15 Lipase < 3 U/L (11-82) L 12/11/22 09:15 Urine Color Dark Yellow 12/11/22 09:21 Urine Appearance Clear (Clear) 12/11/22 09:21 Urine pH 5.0 (4.5-7.5) 12/11/22 09:21 Ur Specific [place] 1.021 (1.000-1.030) 12/11/22 09:21 Urine Protein Negative (Negative) 12/11/22 09:21 Urine Glucose (UA) Negative (Negative) 12/11/22 09:21 Urine Ketones Negative (Negative) 12/11/22 09:21 Urine Blood Trace (Negative) H 12/11/22 09:21 Urine Nitrite Positive (Negative) A 12/11/22 09:21 Urine Bilirubin Negative (Negative) 12/11/22 09:21 Urine Urobilinogen Negative (Negative) 12/11/22 09:21 Ur Leukocyte Esterase Negative (Negative) 12/11/22 09:21 Urine WBC (Auto) 5-10 /hpf (0-5) H 12/11/22 09:21 Urine RBC (Auto) 0-4 /hpf (0-4) 12/11/22 09:21 U Hyaline Cast (Auto) 1-5 /lpf (0-5) 12/11/22 09:21 U Epithel Cells (Auto) >30 /lpf (0-5) H 12/11/22 09:21 Urine Bacteria (Auto) 3+ (Negative) H 12/11/22 09:21 SARS-CoV-2 (PCR) NEGATIVE (Negative) 12/11/22 15:32 Influenza Type A (PCR) Negative (Neg) 12/11/22 15:32 Influenza Type B (PCR) Negative (Neg) 12/11/22 15:32 RSV (RT-PCR) Negative (Neg) 12/11/22 15:32 Impressions Abdomen/Pelvis CT 12/11/22 10:06 CT SCAN OF THE ABDOMEN AND PELVIS WITH IV CONTRAST CLINICAL HISTORY: Right sided abdominal pain. COMPARISON STUDY: No priors. TECHNIQUE: Following the IV administration of 94 cc of Optiray 320, CT scan of the abdomen and pelvis is performed from the lung bases to the proximal femora. Images are reviewed in the axial, sagittal, and coronal planes. IV contrast was administered without complication. A dose lowering technique was utilized adhering to the principles of ALARA. CT DOSE: 467.94 mGy.cm FINDINGS: Lung bases: The heart is enlarged and without pericardial effusion. The coronary arteries are densely calcified. There is trace right pleural effusion with segmental atelectasis at the right lung base. Scarring/atelectasis is noted at the left lung base. There is no basilar pneumothorax. There is a tiny hiatal hernia. Liver: The contrast-enhanced liver is normal in size, contour, and attenuation. There is no intrahepatic biliary ductal dilatation. The hepatic veins and portal veins are patent. Gallbladder: Unremarkable. Spleen: Normal in size and attenuation. 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 Pancreas: Atrophic and grossly unremarkable. Adrenal glands: Unremarkable. Kidneys: The contrast enhanced kidneys demonstrate mild cortical atrophy and are without hydronephrosis. The kidneys enhance symmetrically. 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 Renal sinus cysts are seen bilaterally. Subcentimeter cortical hypodensities likely represent cysts but are too small for definitive characterization. Abdominal vasculature: The abdominal aorta is normal in course and caliber noting moderate to advanced atherosclerotic calcification. Bowel: The small bowel and colon are normal in course and caliber. The appendix is well-visualized and normal. Peritoneum: There is no intraperitoneal free air or abdominal ascites. Lymphadenopathy: None. Pelvic viscera: The bladder, uterus, and adnexa are normal as visualized. Skeletal structures: The skeletal structures are osteopenic. No lytic or blastic lesions are seen. There are acute right posterior 9th and 10th rib fractures. There is fracture of the right posterior 11th rib at the costovertebral junction. There are right transverse process fractures of T10 and T11. Additional chronic/healed bilateral rib fractures are noted. There is an insufficiency fracture of the right sacral ala. There is chronic-appearing perisplenic change in the left aspect of the pubic symphysis. IMPRESSION: 1. There are no acute infectious or inflammatory findings in the other pelvis. 2. Acute right posterior 9th through 11th rib fractures as above, as well as acute right transverse process fractures of T10 and T11. 3. Additional chronic fractures as above. 4. Cardiomegaly. 5. Trace right pleural effusion with segmental atelectasis at the right lung base. 6. Additional findings as above. ACT 112: Negative or not required by law. Electronically signed by: John Cuevas M.D. 12/11/2022 11:07 AM
[2022-12-12] MEDS: ENOXAPARIN INJ 40 MG/0.4 ML SYR SQ SCH (19:45)
[2022-12-12] MEDS: ATORVASTATIN 40 MG TAB PO SCH (19:46)
[2022-12-12] MEDS: MELATONIN 3 MG TAB PO SCH (22:08)
[2022-12-13] MEDS: LEVOTHYROXINE SODIUM 75 MCG TABLET PO SCH (05:09)
[2022-12-13] MEDS ORDERED: ALENDRONATE SODIUM 70 MG TAB PO SCH (07:00)
[2022-12-13] MEDS: ACETAMINOPHEN 325 MG TAB PO SCH ×2 (09:02→13:39)
[2022-12-13] MEDS: ASPIRIN 81 MG ECTAB PO SCH (09:04)
[2022-12-13] MEDS: CYANOCOBALAMIN (B-12) 2,500 MCG TABLET SL SCH (09:04)
[2022-12-13] MEDS: ESCITALOPRAM OXALATE 10 MG TAB PO SCH (09:05)
[2022-12-13] MEDS: FENOFIBRATE NANOCRYSTALLIZED 145 MG TABLET PO SCH (09:05)
[2022-12-13] MEDS: POTASSIUM CHLORIDE CRTAB 20 MEQ TABCR PO SCH (09:06)
[2022-12-13] MEDS: PANTOprazole 40 MG TAB PO SCH (09:06)
[2022-12-13] MEDS: LIDOCAINE 5% 1 PATCH TD SCH (09:07)
[2022-12-13] MEDS: CHOLESTYRAMINE LIGHT 4 GM PKT PO SCH (09:07)
[2022-12-13] MEDS: cefTRIAXone SODIUM 1,000 MG in DEXTROSE 5% AD-VAN 50 ML IV SCH (10:26)
--- NOTE | 2022-12-13 14:41 | Discharge Summary ---
Date of Service December 13, 2022 Admission HPI Per Admitting Provider Ms. Carpenter is an 87 year old female with pmhx of dementia, prior CVA, HLP, hypothyroidism, GERD, anxiety with depression and delirium d/t COVID in August 2022. She presented about 1 week after a fall due to chest wall and abdominal wall pain. She is found to have fractures of posterior ribs 9-11. She is also found to have possible UTI (difficult to say d/t contaminated UA). Ms. Carpenter is somewhat of a difficult historian in terms of she had a hard time with chronology of recent events and symptoms. ROS is nearly acosta-positive. Unfortunately there is no family present to assist with history and they have not answered any phone calls. Per Ms. Carpenter they dropped her off here and went out of town. As best as I can tell she fell about a week ago. She is unclear as to how or why she fell. She presented with pain in the right abdomen, chest wall, and back that is recently worse but present for months. She believes the pain worsened a few days ago after she was putting something in the fridge that started to fall and she aguilar herself catching it. Pain is described as sharp and like a knife being twisted in her. Pain is worse with movement and palpation. She believes she has had a runny nose, f/c, and sweats for the last week. This is associated with malaise, generalized weakness, and fatigue. She has lightheadedness, vertigo, and near syncope with rising for possibly the last week-month, or possibly longer. She reports intermittent dysuria with urinary urgency and frequency for an unclear length of time. Despite telling the ED Doc that she is constipated and not had a bm in 4 days she told me she has chronic diarrhea for at least 3 months with multiple liquid bowel movements per day. Per her RN at bedside she had a small solid stool earlier. She endorses sob but states it is no worse than usual. She denies cough and sore throat. She denies MORTON, focal weakness, numbness, tingling, and incontinence. ROS is of somewhat questionable reliability d/t dementia/mental status. ED Course: vs notable for BP 160s/100s, HR 50s, otherwise stable, saturating well ORA, afebrile b/w notable for Cl 110, remaining cbc and cmp unimpressive/wnl, Mg wnl imaging (CT A/P with contrast) notable for posterior rib fx of rib 9-11. Also notable for lack of e/o infection including lungs, GI, and tracts pt given Ceftriaxone, IVF, Tylenol, and admitted to hospitalist service. Admission Exam Per Admitting Provider General:frail, elderly appearing, NAD, non-toxic appearing Head:NC. Ecchymoses (resolving) involving the chin/neck Eyes: anicteric sclera, no conjunctival injection Nose:normal, nares patent Mouth:dry Neck:supple, trachea midline CV:RRR S1 S2 Pulm:CTA b/l Abd/GI:+ BS, soft, NT, ND, no guarding Ext:no pretibial edema, peripheral pulses intact MSK:muscle wasting Neuro:alert, oriented to self, day and month (not year), knows she is in a hospital but can not name it. She is moving all 4 symmetrically, strength is symmetric. Sensation is intact. Psych:pleasant mood and affect Skin:visible skin is warm, dry, and without rash other than ecchymoses in various stages of healing. Pt not fully undressed for exam. Principal Diagnosis (1) Multiple rib fractures: (2) Acute UTI (urinary tract infection): Discharge Exam Constitutional: WD/WN, vitals as above, NAD, sitting up in bed, pleasant, conversing easily Head: Bruises present on the underside of the chin. Respiratory: normal respiratory effort, lungs clear to auscultation, no wheeze, rales, rhonchi. Normal insp/exp effort, no accessory muscle use Cardiovascular: RRR, no murmur, no edema Vessels: no JVD or carotid bruit Chest: Tenderness present over right chest wall. Abdomen: normal bowel sounds, soft, nontender, no hepatosplenomegaly Musculoskeletal: no cyanosis or clubbing, extremities motor strength 5/5 Skin: no rashes, warm and dry normal turgor Neurologic: PERRL, EOMI, accommodation nl, no face palsy, no dysarthria CN's II- XI intact bilaterally and moves all extremities Discharge Data Allergies Allergy/AdvReac Type Severity Reaction Status Date / Time oxycodone Allergy Unknown HALLUCINATI Verified 09/25/17 16:16 ONS Ordered Studies 12/11/22 10:06 CT abd pelvis IV con only Stat Hospital Course (1) Multiple rib fractures: Patient presented with a mechanical fall. CT abdomen pelvis showed acute right posterior ninth through 11th rib fracture as well as right transverse process fracture of T10-T11 Pain control with lidocaine patch and Tylenol. Discharged on same medication (2) Acute UTI (urinary tract infection): Urine culture growing E. coli Received ceftriaxone during the hospitalization; discharged on oral antibiotic (3) Fall: PT OT evaluation was done; recommended rehab. Patient discharged to acute rehab (4) Head contusion: supportive care analgesia (5) Acquired hypothyroidism: continue levothyroxine (6) GERD without esophagitis: no complaints at this time continue PPI therapy (7) Dementia: without behavioral disturbance supportive care reorient as needed avoid sedating/mind altering meds Plan Please note the above document was generated using voice recognition software. It may contain grammatical, syntax or spelling errors. Any formal questions or concerns about the content, text or information contained within the body of this dictation should be directly addressed to the provider for clarification Total Time Total Time Spent Total Time Spent (In Minutes): 40 Discharge Plan Discharge Items Patient Disposition: Transfer Inpatient Rehab Fac Reason For Visit: ABDOMINAL PAIN Discharge Diagnosis: Multiple rib fractures: Acute UTI (urinary tract infection): Activity: Resume your previous activity Non-emergency contact: Primary Care Provider Call non-emergency contact if: you have any medication questions and your symp toms worsen Follow-up/Referrals: jAay Wesley MD [Primary Care Provider] - Diet: Regular Addtl Attending Provider Instructions: You were admitted to the hospital with rib fractures. You are prescribed Tylenol and lidocaine patch for pain control. You are also found to have UTI. You are prescribed antibiotic for 3 more days. Pending Studies at Discharge: No Stand-Alone Forms: My [facility] Skilled Items Patient informed of condition?: No DNR: Yes Discharge Level of Care: Acute rehab Communicable Disease: No Discharge Prognosis: Stable Lines: None Urinary Catheter: No Medications and DC Order Prescriptions: New acetaminophen 325 mg Tablet 650 mg PO QID Qty: 90 0RF lidocaine 4 % adhesive patch,medicated 1 patch topical DAILY Qty: 15 0RF Rx Instructions: may leave on for up to 12 hrs amoxicillin-pot clavulanate 875-125 mg tablet 1 tab PO BID 3 Days Qty: 6 0RF Continued ASPIRIN (ASPIRIN CHEWABLE) 81 MG CHEWABLE TAB 81 mg PO QAM Qty: 0 LEVOTHYROXINE SODIUM 75 MCG tablet 1 tab PO QAM 90 Days Qty: 90 Rx Instructions: before breakfast 6:01 am ATORVASTATIN (LIPITOR) 40 MG tablet 40 mg PO HS Qty: 0 Rx Instructions: 9:01 pm FENOFIBRATE (TRICOR) 145 MG tablet 145 mg PO QAM Qty: 0 Rx Instructions: 9:01 am loperamide 2 mg capsule See Rx Instructions .ROUTE .COMPLEX MDD 16 mg in 24 hours Rx Instructions: 2 caps daily after first loose stool then 1 cap after each subsequent loose stool alendronate 70 mg tablet 70 mg PO WK Rx Instructions: before breakfast melatonin 3 mg Tablet 3 mg PO HS Rx Instructions: 9:01 pm magnesium hydroxide [Milk of Magnesia] 400 mg/5 mL Suspension 30 ml PO DAILY PRN (Reason: Constipation) Rx Instructions: jose guadalupe tune dauky if no BM for 3 days. Give on day 4 bisacodyl [Dulcolax (bisacodyl)] 10 mg Suppository 10 mg VA DAILY PRN (Reason: Constipation) Rx Instructions: one time daily if milk of mag ineffective, on day 5 of no BM in the AM pantoprazole 40 mg tablet,delayed release (DR/EC) 40 mg PO BID Rx Instructions: am and bedtime Fleet Enema 19-7 gram/118 mL Enema 118 ml VA DAILY PRN (Reason: Constipation) Rx Instructions: one time daily if Dulcolax not effective on day 6 of no BM escitalopram oxalate 10 mg tablet 10 mg PO QAM Rx Instructions: 9:01 am cholestyramine (with sugar) 4 gram powder 0 ea PO DAILY Rx Instructions: on list but no directions cyanocobalamin (vitamin B-12) 5,000 mcg Tablet, Sublingual 5,000 mcg SUBLINGUAL QAM potassium chloride 20 mEq tablet extended release 20 meq PO QAM Rx Instructions: 9:01 am Discontinued acetaminophen [Tylenol] 325 mg Tablet 325 mg PO QID MDD 3000mg every 24 hours PRN (Reason: Pain) Rx Instructions: mild to severe pain acetaminophen [Tylenol] 325 mg Capsule 650 mg PO QID MDD 3000mg every 24 hours PRN (Reason: Fever) Rx Instructions: give 2 tabs for temp >100 Discharge Orders: Discharge Order (Routine); Ordered 12/13/22 Ordered By: Nikolas Orr Admission Data Admit Date/Time: 12/11/22 16:08 Attending Provider: Nkiolas Orr Admit Provider: Naomi Win Primary Care Provider: Ajay Wesley Other Providers: Naomi Win ; [facility] Other Interventions: Discharge Summary Assessment (RN) Last Done: 12/13/22 14:03
--- NOTE | 2022-12-14 05:31 | Electrocardiogram Report ---
Test Reason : Blood Pressure : / mmHG Vent. Rate : 058 BPM Atrial Rate : 058 BPM P-R Int : 128 ms QRS Dur : 080 ms QT Int : 430 ms P-R-T Axes : 000 -08 003 degrees QTc Int : 422 ms Poor data quality, interpretation may be adversely affected Sinus bradycardia No previous ECGs available Confirmed by Perez Aranda ([id number]) on 12/14/2022 5:30:46 AM Referred By: REFERRED SELF Confirmed By:Perez Aranda
== END 2022-12-13 15:50 | DRG 184 ==
LOC: ED 09:04 → SUATTDRO 16:08 → 3N 16:08